=== PATIENT | female | born 1940 | race Caucasian/White ===

== ENCOUNTER 2017-04-12 14:00 | Outpatient (RCR) | payer MEDICARE ==
[2017-03-29 15:47] VITALS: BP 169/54; PULSE 68; TEMP 98
[2017-04-05 15:00] VITALS: BP 131/44; PULSE 82; TEMP 98.1
[2017-04-12 14:00] VITALS: BP 118/42; PULSE 77; TEMP 99
[~2017-04-12 14:00] MED LIST: ALBUTEROL0.09 MG/A1 IH; AMBIEN 10MG10 MG PO; AMBIEN 5MG TABLE5 MG PO; ANORO IH; ARCAPTA IH; ASPIR-LOW81 MG PO; ASPIRIN 81M81 MG/TA2 PO; ASPIRIN E.C. 8181 MG; ASPIRIN E.C. 8181 MG PO; B-100; BENADRYL25 M2 PO; BENADRYL25 MG PO; BENICAR 20MG TA20 MG PO; BUSPAR10 MG PO; BUSPIRONE; CALCIUM; CALCIUM 600600 MG PO; CALCIUM600 M2 PO; CALTRATE 600 +1 TAB PO; CALTRATE-600 W600 MG PO; CARDI-OMEGA1000 MG PO; CEFTIN250 MG PO; CLARITIN 1010 MG/TAB PO; CLODERM; CO ENZYME Q-1050 MG PO; COENZYME Q-10100 M1 PO; CRESTOR 10MG10 MG PO; CYCLOBENZAPRINE10 MG PO; D3-55000 IU PO; DALIRESP500 MCG PO; DOXYCYCLINE 10100 MG PO; FISH OIL CONC1000 MG PO; FUROSEMIDE PO; HCTZ 25MG25 MG PO; LASIX 20MG TABL20 MG PO; LASIX PO; LEVOXYL; LEVOXYL0.05 MG PO; LEXAPRO 10MG10 MG PO; LIPITOR40 MG PO; LORATADINE10 MG PO; NASONEX SPRAY17 GM NS; NATURAL MAGNES200 MG PO; NIACIN 250250 MG/CAP PO; NORCO 325 MG-7.1 TAB PO; NORVASC 5MG5 MG/TAB PO; ONE DAILY1 TA1 PO; PROTONIX 40MG T40 MG PO; PROTONIX20 MG PO; PROZAC 20MG20 MG PO; PROZAC40 MG PO; RT ALBUTER2.5 MG/0.5 IH; RT SPIRIVA18 MCG IH; SENOKOT TABLET1 EA PO; SINGULAIR 110 MG/TAB PO; SINGULAIR10 MG PO; SPIRIVA HANDIHALER; SPIRIVA INH IH; SYNTHROID0.05 MG/TA PO; TEKTURNA150 MG PO; THEO PO; THEO-24; THEO-24 20200 MG/CAP PO; THEODUR 200MG PO; VENOFER IV; VENTOLIN0.09 MG IH; VITAMIN C500 MG PO; ZOCOR40 MG PO; ZOCOR80 MG PO; [UNRECOGNIZED DRUG - CODE]; [UNRECOGNIZED DRUG - OTHER] PO; [UNRECOGNIZED DRUG - OTHER] PO; [UNRECOGNIZED DRUG - OTHER] TP; [UNRECOGNIZED DRUG - REMARK]
== END 2017-04-12 15:46 | disposition home or self-care (01) ==
LOC: EUO 14:00
DX: D63.1 Anemia in chronic kidney disease (principal)
CPT/HCPCS: J2916

== ENCOUNTER 2017-05-01 11:51 | Day surgery (SDC) | payer MEDICARE ==
[~2017-05-01] VITALS: Ht 165.1 cm; Wt 69.1 kg
[2017-05-01] MEDS ORDERED: VITAMIN D32000 I1 PO (12:19)
[2017-05-01] MEDS ORDERED: ARANESP0.15 MG/0. SQ (12:25)
[2017-05-01 12:34] VITALS: BP 179/68; PULSE 102; TEMP 97.7
[2017-05-01 13:43] VITALS: BP 126/47; PULSE 92; TEMP 98.2
[2017-05-01 13:58] VITALS: BP 119/58; PULSE 90
[2017-05-01 14:13] VITALS: BP 114/53; PULSE 82
[2017-05-01 14:28] VITALS: BP 117/56; PULSE 86
[2017-05-01] MEDS ORDERED: CARAFATE 1GM1 G PO (15:03)
[2017-05-01 16:15] VITALS: BP 111/57; PULSE 89
== END 2017-05-01 14:55 | disposition home or self-care (01) ==
LOC: SDCO 11:51
DX: K29.30 Chronic superficial gastritis without bleeding (principal); K31.819 Angiodysplasia of stomach and duodenum without bleeding; K29.70 Gastritis, unspecified, without bleeding; K63.89 Other specified diseases of intestine; K64.0 First degree hemorrhoids; K57.30 Diverticulosis of large intestine without perforation or abscess without bleeding
CPT/HCPCS: OP; J2250; J3010; J7030

== ENCOUNTER 2017-05-21 13:31 | Outpatient (CLI) | payer MEDICARE ==
[~2017-05-21] VITALS: Ht 165.1 cm; Wt 69.7 kg
[~2017-05-21 13:31] MED LIST changes: +ARANESP0.15 MG/0. SQ; +CARAFATE 1GM1 G PO; +VITAMIN D32000 I1 PO
[2017-05-21 14:10] VITALS: BP 121/47; PULSE 86; TEMP 98.6
== END 2017-05-21 16:02 | disposition home or self-care (01) ==
LOC: EUO 13:31
DX: N18.3 Chronic kidney disease, stage 3 (moderate) (principal); D63.1 Anemia in chronic kidney disease; Z79.899 Other long term (current) drug therapy
CPT/HCPCS: J0881

== ENCOUNTER 2017-06-21 12:39 | Outpatient (CLI) | payer MEDICARE ==
[~2017-06-21] VITALS: Ht 165.1 cm; Wt 69.0 kg
[2017-06-21 13:26] VITALS: BP 151/55; PULSE 80; TEMP 97.9
== END 2017-06-21 13:51 | disposition home or self-care (01) ==
LOC: EUO 12:39
DX: N18.3 Chronic kidney disease, stage 3 (moderate) (principal); D63.1 Anemia in chronic kidney disease; Z79.899 Other long term (current) drug therapy
CPT/HCPCS: J0881

== ENCOUNTER 2017-07-24 12:39 | Outpatient (CLI) | payer MEDICARE ==
[~2017-07-24] VITALS: Ht 165.1 cm; Wt 70.8 kg
[2017-07-24 13:55] VITALS: BP 168/65; PULSE 79; TEMP 98.3
== END 2017-07-24 14:03 | disposition home or self-care (01) ==
LOC: EUO 12:39
DX: N18.3 Chronic kidney disease, stage 3 (moderate) (principal); D63.1 Anemia in chronic kidney disease; Z79.899 Other long term (current) drug therapy
CPT/HCPCS: J0881

== ENCOUNTER 2017-08-23 12:35 | Outpatient (CLI) | payer MEDICARE ==
[~2017-08-23] VITALS: Ht 165.1 cm; Wt 71.8 kg
[2017-08-23 13:06] VITALS: BP 148/53; PULSE 77; TEMP 98.6
== END 2017-08-23 14:40 | disposition home or self-care (01) ==
LOC: EUO 12:35
DX: N18.3 Chronic kidney disease, stage 3 (moderate) (principal); D63.1 Anemia in chronic kidney disease
CPT/HCPCS: J0881; J2916

== ENCOUNTER 2017-09-24 13:46 | Outpatient (CLI) | payer MEDICARE ==
[2017-09-24 14:05] VITALS: BP 132/86; PULSE 84; TEMP 98
== END 2017-09-24 14:42 | disposition home or self-care (01) ==
LOC: EUO 13:46
DX: D63.1 Anemia in chronic kidney disease (principal); N18.3 Chronic kidney disease, stage 3 (moderate)
CPT/HCPCS: J0881

== ENCOUNTER 2017-10-25 12:43 | Outpatient (CLI) | payer MEDICARE ==
[~2017-10-25] VITALS: Ht 165.1 cm; Wt 68.1 kg
[2017-10-25 13:41] VITALS: BP 165/53; PULSE 86; TEMP 97.6
== END 2017-10-25 13:56 | disposition home or self-care (01) ==
LOC: EUO 12:43
DX: N18.3 Chronic kidney disease, stage 3 (moderate) (principal); D63.1 Anemia in chronic kidney disease
CPT/HCPCS: J0881

== ENCOUNTER 2017-11-23 14:36 | Outpatient (CLI) | payer MEDICARE ==
[~2017-11-23] VITALS: Ht 165.1 cm; Wt 70.0 kg
[2017-11-23] MEDS ORDERED: NORVASC 5MG5 MG/TAB PO (14:54)
[2017-11-23] MEDS ORDERED: CLARITIN 1010 MG/TAB PO (14:55)
[2017-11-23 14:57] VITALS: BP 144/48; PULSE 95; TEMP 97.8
== END 2017-11-23 15:56 | disposition home or self-care (01) ==
LOC: EUO 14:36
DX: N18.3 Chronic kidney disease, stage 3 (moderate) (principal); D63.1 Anemia in chronic kidney disease
CPT/HCPCS: J0881

== ENCOUNTER 2017-12-21 13:54 | Outpatient (CLI) | payer MEDICARE ==
[~2017-12-21] VITALS: Ht 165.1 cm; Wt 70.0 kg
[2017-12-21 14:22] VITALS: BP 111/49; PULSE 87; TEMP 98
== END 2017-12-21 14:53 | disposition home or self-care (01) ==
LOC: EUO 13:54
DX: N18.3 Chronic kidney disease, stage 3 (moderate) (principal); D63.1 Anemia in chronic kidney disease
CPT/HCPCS: J0881

== ENCOUNTER 2018-02-21 10:43 | Outpatient (CLI) | payer MEDICARE ==
[~2018-02-21] VITALS: Ht 165.1 cm; Wt 83.2 kg
[2018-02-21 11:11] VITALS: BP 118/44; PULSE 80; TEMP 98
== END 2018-02-21 11:15 | disposition home or self-care (01) ==
LOC: EUO 10:43
DX: N18.3 Chronic kidney disease, stage 3 (moderate) (principal); D63.1 Anemia in chronic kidney disease
CPT/HCPCS: J0881

== ENCOUNTER → 2018-02-28 | Outpatient (CLI) | payer MEDICARE ==
[2018-02-28 14:05] VITALS: BP 154/54; PULSE 85; TEMP 97.8
== END ==
LOC: EUO 13:51
DX: N18.3 Chronic kidney disease, stage 3 (moderate) (principal); D63.1 Anemia in chronic kidney disease
CPT/HCPCS: J2916

== ENCOUNTER 2018-03-25 12:51 | Outpatient (CLI) | payer MEDICARE ==
[~2018-03-25] VITALS: Ht 165.1 cm; Wt 71.9 kg
[2018-03-25 13:17] VITALS: BP 121/40; PULSE 61; TEMP 98.1
== END 2018-03-25 13:21 | disposition home or self-care (01) ==
LOC: EUO 12:51
DX: N18.3 Chronic kidney disease, stage 3 (moderate) (principal); D63.1 Anemia in chronic kidney disease
CPT/HCPCS: J0881

== ENCOUNTER 2018-04-23 15:42 | Outpatient (CLI) | payer MEDICARE ==
[2018-04-23 16:45] VITALS: BP 152/82; PULSE 99; TEMP 98
== END 2018-04-23 16:46 | disposition home or self-care (01) ==
LOC: EUO 15:42
DX: N18.3 Chronic kidney disease, stage 3 (moderate) (principal); D63.1 Anemia in chronic kidney disease
CPT/HCPCS: J0881

== ENCOUNTER 2018-05-24 12:49 | Outpatient (RCR) | payer MEDICARE ==
[~2018-05-24] VITALS: Ht 165.1 cm; Wt 72.0 kg
[2018-05-24 13:06] VITALS: BP 116/38; PULSE 78; TEMP 98.1
== END 2018-05-24 15:18 | disposition home or self-care (01) ==
LOC: EUO 12:49
DX: N18.3 Chronic kidney disease, stage 3 (moderate) (principal); D63.1 Anemia in chronic kidney disease
CPT/HCPCS: J0881

== ENCOUNTER 2018-07-05 13:09 | Outpatient (CLI) | payer MEDICARE ==
[~2018-07-05] VITALS: Ht 165.1 cm; Wt 71.3 kg
[2018-07-05] MEDS ORDERED: XARELTO20 MG PO (13:22)
[2018-07-05] MEDS ORDERED: PERCOCET 325 MG1 TA2 PO (13:23)
[2018-07-05 13:33] VITALS: BP 135/49; PULSE 67; TEMP 98.1
== END 2018-07-05 14:00 | disposition home health service (06) ==
LOC: EUO 13:09
DX: N18.3 Chronic kidney disease, stage 3 (moderate) (principal); D63.1 Anemia in chronic kidney disease
CPT/HCPCS: J0881; J0882

== ENCOUNTER 2018-08-07 14:15 | Outpatient (CLI) | payer MEDICARE ==
[~2018-08-07] VITALS: Ht 165.1 cm; Wt 72.9 kg
[~2018-08-07 14:15] MED LIST changes: +PERCOCET 325 MG1 TA2 PO; +XARELTO20 MG PO
[2018-08-07 14:48] VITALS: BP 117/63; PULSE 87; TEMP 98.2
== END 2018-08-07 14:55 | disposition home or self-care (01) ==
LOC: EUO 14:15
DX: N18.3 Chronic kidney disease, stage 3 (moderate) (principal); D63.1 Anemia in chronic kidney disease
CPT/HCPCS: J0881

== ENCOUNTER → 2018-09-04 | Outpatient (CLI) | payer MEDICARE | LOC: COL.VAS 13:49 | DX: I35.2 Nonrheumatic aortic (valve) stenosis with insufficiency (principal) ==

== ENCOUNTER 2018-09-09 15:04 | Outpatient (RCR) | payer MEDICARE ==
[~2018-09-09] VITALS: Ht 165.1 cm; Wt 75.0 kg
[2018-09-09 17:43] VITALS: BP 128/60; PULSE 81; TEMP 98.3
== END 2018-09-09 19:00 | disposition home or self-care (01) ==
LOC: EUO 15:04
DX: N18.3 Chronic kidney disease, stage 3 (moderate) (principal); D63.1 Anemia in chronic kidney disease
CPT/HCPCS: J0881

== ENCOUNTER 2018-10-25 13:48 | Outpatient (CLI) | payer MEDICARE, BC ==
[~2018-10-25] VITALS: Ht 165.1 cm; Wt 71.7 kg
[2018-10-25 14:14] VITALS: BP 101/34; PULSE 84; TEMP 98.4
== END 2018-10-25 14:39 | disposition home or self-care (01) ==
LOC: EUO 13:48
DX: N18.3 Chronic kidney disease, stage 3 (moderate) (principal); D63.1 Anemia in chronic kidney disease
CPT/HCPCS: J0881

== ENCOUNTER 2018-11-27 12:59 | Outpatient (CLI) | payer MEDICARE, BC ==
[~2018-11-27] VITALS: Ht 165.1 cm; Wt 71.1 kg
[2018-11-27 13:33] VITALS: BP 111/39; PULSE 74; TEMP 97.8
== END 2018-11-27 13:46 | disposition home or self-care (01) ==
LOC: EUO 12:59
DX: N18.3 Chronic kidney disease, stage 3 (moderate) (principal); D63.1 Anemia in chronic kidney disease
CPT/HCPCS: J0881

== ENCOUNTER 2018-12-26 14:01 | Outpatient (CLI) | payer MEDICARE ==
[~2018-12-26] VITALS: Ht 165.1 cm; Wt 70.7 kg
[2018-12-26 14:48] VITALS: BP 125/42; PULSE 78; TEMP 97.9
== END 2018-12-30 08:22 | disposition home or self-care (01) ==
LOC: EUO 14:01
DX: N18.3 Chronic kidney disease, stage 3 (moderate) (principal); D63.1 Anemia in chronic kidney disease
CPT/HCPCS: J0881

== ENCOUNTER 2019-01-31 14:49 | Outpatient (CLI) | payer MEDICARE ==
[2019-01-31 15:00] VITALS: BP 149/51; PULSE 78; TEMP 97.4
== END 2019-01-31 15:30 | disposition home or self-care (01) ==
LOC: EUO 14:49
DX: N18.3 Chronic kidney disease, stage 3 (moderate) (principal); D63.1 Anemia in chronic kidney disease
CPT/HCPCS: J0881

== ENCOUNTER 2019-02-28 13:50 | Outpatient (CLI) | payer MEDICARE ==
[~2019-02-28] VITALS: Ht 165.1 cm; Wt 62.4 kg
[2019-02-28 14:36] VITALS: BP 109/57; PULSE 76; TEMP 98.6
== END 2019-02-28 14:45 | disposition home or self-care (01) ==
LOC: EUO 13:50
DX: N18.3 Chronic kidney disease, stage 3 (moderate) (principal); D63.1 Anemia in chronic kidney disease
CPT/HCPCS: J0881

== ENCOUNTER → 2019-03-25 | Outpatient (CLI) | payer MEDICARE ==
[~2019-03-25] MED LIST changes: +ATROVENT NASAL15 ML NS; +FLORAJEN A20 Billion PO; +TYLENOL 500MG500 MG PO; +ZYRTEC ALLERGY10 MG PO
[2019-03-25 10:45] LABS: CREATININE, serum 1.49 (0.52-1.25)
== END ==
LOC: COL.LAB 09:51
PROVIDERS: Physician Assistant
DX: R06.02 Shortness of breath (principal)

== ENCOUNTER 2019-04-02 08:17 | Outpatient (CLI) | payer MEDICARE ==
[~2019-04-02] VITALS: Ht 165.1 cm; Wt 62.0 kg
[2019-04-02 08:49] VITALS: BP 101/39; PULSE 72; TEMP 98.1
== END 2019-04-02 09:18 | disposition home or self-care (01) ==
LOC: EUO 08:17
DX: N18.3 Chronic kidney disease, stage 3 (moderate) (principal); D63.1 Anemia in chronic kidney disease
CPT/HCPCS: J0881; J0882

== ENCOUNTER 2019-05-08 13:55 | Outpatient (CLI) | payer MEDICARE ==
[~2019-05-08] VITALS: Ht 165.1 cm; Wt 61.7 kg
[2019-05-08 14:11] VITALS: BP 109/49; PULSE 87; TEMP 98
== END 2019-05-08 14:36 | disposition home or self-care (01) ==
LOC: EUO 13:55
DX: N18.3 Chronic kidney disease, stage 3 (moderate) (principal); D63.8 Anemia in other chronic diseases classified elsewhere
CPT/HCPCS: J0881

== ENCOUNTER 2019-06-06 09:50 | Outpatient (CLI) | payer MEDICARE ==
[~2019-06-06] VITALS: Ht 165.1 cm; Wt 61.5 kg
[2019-06-06 10:42] VITALS: BP 128/43; PULSE 83; TEMP 97.7
== END 2019-06-06 10:43 | disposition home or self-care (01) ==
LOC: EUO 09:50
DX: D63.1 Anemia in chronic kidney disease (principal); N18.3 Chronic kidney disease, stage 3 (moderate)
CPT/HCPCS: J0881